=== PATIENT | male | born 1955 | race African-American/Black ===

== ENCOUNTER 2017-07-14 01:27 | Emergency (ER) | payer MEDICAID ==
[~2017-07-14] VITALS: Ht 170.2 cm; Wt 82.0 kg
[~2017-07-14 01:27] MED LIST: B POLLEN PO; SEROQUEL; [UNRECOGNIZED DRUG - OTHER] PO; [UNRECOGNIZED DRUG - OTHER] PO
[2017-07-14] MEDS ORDERED: ASPIRIN 325MG EC TABLET PO ONE (10:00)
[2017-07-14] MEDS ORDERED: QUETIAPINE FUMARATE 100MG TABLET PO SCH (10:52)
[2017-07-14 10:59] LABS: BASOPHILS % 0.8 % (0.0-2.0); EOSINOPHILS % 3.1 % (0.0-5.0); HEMATOCRIT. 46.3 % (42.0-52.0); HEMOGLOBIN. 15.5 g/dL (14.0-18.0); LYMPHOCYTES % 23.8 % (20.0-50.0); MEAN CORPUSCULAR VOLUME 89.5 fL (80.0-94.0); MONOCYTES % 14.8 % (2.0-8.0); NEUTROPHILS % 57.5 % (40.0-76.0); PLATELET 190 x1000/uL (130-400); RED BLOOD CELL COUNT 5.17 mill/uL (4.7-6.1); RED CELL DISTRIBUTION WIDTH 14.7 % (11.6-14.6)
[2017-07-14 11:00] VITALS: BP 139/88
[2017-07-14 11:06] LABS: INR 1.1; PROTHROMBIN TIME 11.7 sec (9.4-11.6)
[2017-07-14 11:14] LABS: CARBON DIOXIDE 33 mEq/L (21-32); CHLORIDE 103 mEq/L (98-107); ETHANOL BLOOD < 10 mg/dL; TROPONIN I < 0.02 ng/mL (0.00-0.04)
== END 2017-07-14 16:17 | disposition left against medical advice (07) ==
LOC: ER 01:45
DX: R07.89 Other chest pain (principal); R45.851 Suicidal ideations; F12.10 Cannabis abuse, uncomplicated; F14.10 Cocaine abuse, uncomplicated
CPT/HCPCS: 36415; 71010; 80053; 80307; 80329; 83690; 83880; 84484; 85025; 85610; 93005; 99285; G0482